=== PATIENT | female | born 1995 | race American Indian/Alaskan Native ===

== ENCOUNTER 2017-06-10 12:42 | Emergency (ER) | payer SELFPAY ==
[2017-06-10 13:16] VITALS: BP 125/81
[2017-06-10 13:39] LABS: Bacteria,Urine 1+ /HPF (Negative); Bilirubin,Urine NEG (Negative); Blood,Urine SM (Negative); Color,Urine Amber (Yellow); Mucus,Urine FEW /HPF; Protein,Urine <15 mg/dL mg/dL (Negative)
[2017-06-10] MEDS ORDERED: ZOFRAN ODT PO ONE (18:34)
[2017-06-10 18:41] LABS: HCG Qualitative,Urine Negative (Negative)
[2017-06-10] MEDS ORDERED: XYLOCAINE 1% MPF 5 mL INFILTRATI ONE (18:44)
[2017-06-10] MEDS ORDERED: ROCEPHIN IM ONE (18:44)
--- NOTE | 2017-06-10 18:52 | Emergency Department Report ---
ED Female HPI - General Chief complaint: Urogenital-Female Stated complaint: THROWING UP, PAINFUL URINATION Time Seen by Provider: 06/10/17 18:28 Source: patient Mode of arrival: Ambulatory Limitations: No Limitations - History of Present Illness Initial comments: 22-year-old female with no significant past medical history came in complaining of burning on urination. Patient says she's had these symptoms for the past 4 days. Patient stated that she took some medication from [facility] over-the- counter and since then she been feeling nauseous. Patient denies any nausea chest pain shortness of breath. She denies any fever or chills. Patient denies any neck pain or stiffness. MD Complaint: dysuria -: Gradual, days(s) (4 days) Radiation: non-radiating Severity: mild Severity scale (0 -10): 2 Quality: dull Improves with: none Worsens with: urination Are you Now?: No Associated Symptoms: denies other symptoms. denies: vaginal discharge, vaginal bleeding, abdominal pain, nausea/vomiting, fever/chills, headaches, loss of appetite, dysuria, hematuria, rash, seizure, shortness of breath, syncope, weakness, other - Related Data Previous Rx's Medication Instructions Recorded Last Taken Type Nitrofurantoin Monohyd/M-Cryst 100 mg PO BID 7 Days #14 capsule 06/10/17 Unknown Rx [Macrobid 100 mg Capsule] Allergies Allergy/AdvReac Type Severity Reaction Status Date / Time No Known Allergies Allergy Unverified 06/10/17 13:11 ED Review of Systems ROS: Stated complaint: THROWING UP, PAINFUL URINATION Other details as noted in HPI Constitutional: denies: chills, fever Eyes: denies: eye pain, eye discharge, vision change ENT: denies: ear pain, throat pain Respiratory: denies: cough, shortness of breath, wheezing Cardiovascular: denies: chest pain, palpitations Endocrine: no symptoms reported Gastrointestinal: denies: abdominal pain, nausea, diarrhea Genitourinary: denies: urgency, dysuria, discharge Musculoskeletal: denies: back pain, joint swelling, arthralgia Skin: denies: rash, lesions Neurological: denies: headache, weakness, paresthesias Psychiatric: denies: anxiety, depression Hematological/Lymphatic: denies: easy bleeding, easy bruising ED Past Medical Hx - Past Medical History Additional medical history: KIDNEY STONES - Social History Smoking Status: Never Smoker Substance Use Type: None - Medications Home Medications: Home Medications Medication Instructions Recorded Confirmed Last Taken Type Nitrofurantoin Monohyd/M-Cryst 100 mg PO BID 7 Days #14 capsule 06/10/17 Unknown Rx [Macrobid 100 mg Capsule] ED Physical Exam - General Limitations: No Limitations - Head Head exam: Present: atraumatic, normocephalic - Eye Eye exam: Present: normal appearance - ENT ENT exam: Present: mucous membranes moist - Neck Neck exam: Present: normal inspection - Respiratory Respiratory exam: Present: normal lung sounds bilaterally. Absent: respiratory distress - Cardiovascular Cardiovascular Exam: Present: regular rate, normal rhythm. Absent: systolic murmur, diastolic murmur, rubs, gallop - GI/Abdominal GI/Abdominal exam: Present: soft, normal bowel sounds. Absent: tenderness, guarding, rebound, rigid - Rectal Rectal exam: Present: deferred - External exam: Present: swelling - Extremities Exam Extremities exam: Present: normal inspection - Back Exam Back exam: Present: normal inspection - Neurological Exam Neurological exam: Present: alert, oriented X3 - Psychiatric Psychiatric exam: Present: normal affect, normal mood - Skin Skin exam: Present: warm, dry, intact, normal color. Absent: rash ED Course Vital Signs 06/10/17 13:11 Temperature 99.2 F Pulse Rate 78 Respiratory 15 Rate Blood Pressure 125/81 O2 Sat by Pulse 100 Oximetry 22-year-old female with no significant past medical history came in complaining of burning on urination. Patient's urine shows she has a urinary tract infection. Patient is refusing blood work and wants to go home, all risks explained. Again pt doesnt want bloodwork and wants the antibiotics and wants to leave. Critical care attestation.: If time is entered above; I have spent that time in minutes in the direct care of this critically ill patient, excluding procedure time. ED Disposition Clinical Impression: Urinary tract infection Disposition: DC-01 TO HOME OR SELFCARE Is pt being admited?: No Does the pt Need Aspirin: No Condition: Stable Instructions: Urinary Tract Infection in Women (ED) Prescriptions: Nitrofurantoin Monohyd/M-Cryst [Macrobid 100 mg Capsule] 100 mg PO BID 7 Days # 14 capsule Referrals: PRIMARY CARE, [Primary Care Provider] - 3-5 Days FRIDA IBRAHIM MD [Staff Physician] - 3-5 Days
== END 2017-06-10 19:00 | disposition home or self-care (01) ==
LOC: ED 12:42
DX: N39.0 Urinary tract infection, site not specified (principal); Z87.442 Personal history of urinary calculi
CPT/HCPCS: 81001; 81025; 87076; 87086; 87186; 96372; 99283; J0696; Q0162

== ENCOUNTER 2021-07-01 11:31 | Emergency (ER) | payer SELFPAY ==
[2021-07-01 14:12] VITALS: BP 135/87
--- NOTE | 2021-07-01 14:23 | Emergency Department Report ---
Minor Respiratory - HPI Chief Complaint: Upper Respiratory Infection Stated Complaint: MANDEEP/WHEEZING Time Seen by Provider: 07/01/21 14:19 Minor Respiratory: Yes Rhinorrhea, Yes Able to Tolerate Fluids, Yes Cough, Yes Sick Contacts, Yes Shortness of Breath, No Sore Throat, No Ear Pain, No Hemoptysis, No Chest Pain, No Fever Other History: 26-year-old -[place] female presents to the emergency room complaining of a 3-day history of nasal congestion runny nose shortness of breath when she sits. She has a nonproductive cough. She denies any fever no chills no chest pain. She is unvaccinated for COVID and flu. She has not tested for COVID or the flu. She reports she does not have a primary care provider no past medical history and currently takes no meds on a daily basis. Patient denies any known drug allergies. ED Review of Systems ROS: Stated complaint: MANDEEP/WHEEZING Other details as noted in HPI Comment: All other systems reviewed and negative ED Past Medical Hx - Past Medical History Additional medical history: KIDNEY STONES - Social History Smoking Status: Never Smoker Substance Use Type: None - Medications Home Medications: Home Medications Medication Instructions Recorded Confirmed Last Taken Type Nitrofurantoin Monohyd/M-Cryst 100 mg PO BID 7 Days #14 capsule 06/10/17 Unknown Rx [Macrobid 100 mg Capsule] Minor Respiratory Exam - Exam General: Vital signs noted. No distress. Alert and acting appropriately. HEENT: Yes Moist Mucous Membranes, No Pharyngeal Erythema, No Pharyngeal Exudates, No Rhinorrhea, No Conjuctival Injection, No Frontal Tenderness, No Maxillary Tenderness Neck: Yes Supple, No Adenopathy Lungs: Yes Good Air Exchange, No Wheezes, No Ronchi, No Stridor, No Cough, No Labored Respirations, No Retractions, No Use of Accessory Muscles, No Other Abnormal Lung Sounds Heart: Yes Regular, No Murmur Abdomen: Yes Normal Bowel Sounds, No Tenderness, No Peritoneal Signs Skin: No Rash, No Edema Neurologic: Alert and oriented, no deficits. Musculoskeletal: Unremarkable. ED Course Vital Signs 07/01/21 07/01/21 12:46 14:10 Temperature 98.7 F 97.9 F Pulse Rate 94 H 79 Respiratory 16 16 Rate Blood Pressure 132/69 135/87 [Right] O2 Sat by Pulse 100 99 Oximetry ED Medical Decision Making - Medical Decision Making 26-year-old -[place] female presents to the emergency room complaining of a 3-day history of nasal congestion runny nose shortness of breath when she sits. She has a nonproductive cough. She denies any fever no chills no chest pain. She is unvaccinated for COVID and flu. She has not tested for COVID or the flu. She reports she does not have a primary care provider no past medical history and currently takes no meds on a daily basis. Patient has no known drug allergies. Patient is not taking anything for symptoms. Patient has a normal examination vital signs are within normal limits patient is nontoxic in appearance no acute distress. Patient will be referred to get a COVID test and try [id number] allergy medication such as Zyrtec's Fabienne or Claritin. She can use Flonase for nasal congestion. Tylenol ibuprofen as needed for pain. Increase your fluid intake follow-up with your primary care provider. Critical care attestation.: If time is entered above; I have spent that time in minutes in the direct care of this critically ill patient, excluding procedure time. ED Disposition Clinical Impression: Allergic rhinitis, Viral infection Disposition: 01 HOME / SELF CARE / HOMELESS Is pt being admited?: No Does the pt Need Aspirin: No Condition: Stable Instructions: Allergic Rhinitis, Adult, [id number], Viral Respiratory Infection, [id number] Additional Instructions: Your symptoms appear most consistent with a nonspecific viral syndrome. However, given this current pandemic, COVID-19 is in the differential of possibilities. Despite your previous negative COVID-19 test, I do recommend repeat outpatient Covid 19 testing. In the meantime, isolate/quarantine yourself and stay away from anyone who is elderly, immunocompromised or chronically ill. You can use ibuprofen every 6-8 hours and Tylenol every 4-8 hours, using the dosing on the back of the bottle, as needed for any fever or body aches. You can take Claritin and Zyrtec's or Fabienne. Recommend Flonase for nasal congestion. Return to the emergency department with any worsening of your symptoms, development of chest pain or shortness of breath, or with any acute distress. Referrals: [facility] [Provider Group] - 3-5 Days Forms: Work/School Release Form(ED) Time of Disposition: 14:23
== END 2021-07-01 14:55 | disposition home or self-care (01) ==
LOC: ED 11:31
DX: J30.9 Allergic rhinitis, unspecified (principal); B34.9 Viral infection, unspecified
CPT/HCPCS: 99282